=== PATIENT | female | born 1945 | race Caucasian/White ===

== ENCOUNTER 2017-10-26 06:39 | Inpatient (IN) | payer MEDICARE, OTHER ==
[2017-10-26] MEDS ORDERED: ROCURONIUM 50 MG INJ (07:00)
[2017-10-26] MEDS ORDERED: LIDOCAINE 2% (SDV) 5 ML INJ (07:00)
[2017-10-26] MEDS ORDERED: ACETAMINOPHEN 1000 MG/100 ML IVPB (07:00)
[2017-10-26] MEDS ORDERED: SUGAMMADEX SODIUM 200 MG/2 ML VIAL IV (07:00)
[2017-10-26] MEDS ORDERED: CEFAZOLIN 1 GM INJ (07:00)
[2017-10-26] MEDS: DEXAMETHASONE 1 MG TAB PO (07:36)
[2017-10-26] MEDS: traMADol 50 MG TAB PO (07:36)
[2017-10-26] MEDS: GABAPENTIN 300 MG CAP PO ×2 (07:36→21:41)
[2017-10-26] MEDS: BUPIVACAINE 0.5%/EPI (SDV) 30 ML INJ (07:45)
[2017-10-26] MEDS: TOBRAMYCIN 1.2 GM POWDER (07:45)
[2017-10-26] MEDS: POLYMYXIN/BACITRACIN 1L IRRIG (07:46)
[2017-10-26] MEDS: CA CHLORIDE 10% 10 ML SYRINGE (07:46)
[2017-10-26] MEDS: THROMBIN 5000 UNIT VIAL (07:47)
[2017-10-26] MEDS ORDERED: FENTAnyl 50 MCG/ML VIAL (08:28)
[2017-10-26] MEDS ORDERED: PROPOFOL 20 ML (08:29)
[2017-10-26] MEDS ORDERED: SUCCINYLCHOLINE CHLORIDE 100 MG/5 ML SYG IV (08:29)
[2017-10-26] MEDS ORDERED: MIDAZOLAM 1 MG/ML 2 ML INJ ×2 (08:29→08:44)
[2017-10-26] MEDS: BUPIVACAINE 0.5% (SDV) 30 ML, morphine SULFATE (PF) 8 MG, EPINEPHrine 0.3 MG, KETOROLAC... IRR ×2 (08:30→09:11)
[2017-10-26] MEDS ORDERED: ROPIVACAINE 0.5 % 30 ML VIAL (08:34)
[2017-10-26] MEDS: CEFAZOLIN 2 GM/50 ML (PMX) 50 ML IVPB (08:45)
[2017-10-26] MEDS: TRANEXAMIC ACID 1,000 MG in DEXTROSE 5% 100 ML IVPB (09:11)
[2017-10-26] MEDS ORDERED: ONDANSETRON 4 MG INJ (09:27)
[2017-10-26] MEDS ORDERED: MAGNESIUM HYDROXIDE 30ML CUP PO (10:00)
[2017-10-26] MEDS ORDERED: morphine 2 MG INJ IV ×2 (10:00)
[2017-10-26] MEDS ORDERED: LORAZEPAM 1 MG TAB PO (10:00)
[2017-10-26] MEDS ORDERED: ONDANSETRON 4 MG INJ IV ×2 (10:00→11:00)
[2017-10-26] MEDS ORDERED: DIPHENHYDRAMINE 50 MG INJ IV ×2 (10:00→11:00)
[2017-10-26] MEDS ORDERED: ACETAMINOPHEN 500 MG TAB PO (10:00)
[2017-10-26] MEDS ORDERED: ZOLPIDEM 5 MG TAB PO (10:00)
[2017-10-26] MEDS ORDERED: OXYCODONE/ACETAMINOPHEN (5/325) TAB PO (10:00)
[2017-10-26] MEDS ORDERED: hydrALAzine 20 MG INJ (10:38)
[2017-10-26] MEDS: TRANEXAMIC ACID 1,000 MG in DEXTROSE 5% 100 ML IV (10:57)
[2017-10-26] MEDS: hydrALAzine 20 MG INJ IV (10:58)
[2017-10-26] MEDS ORDERED: FENTAnyl 50 MCG/ML VIAL IV ×2 (11:00)
[2017-10-26] MEDS ORDERED: MEPERIDINE 25 MG INJ IV (11:00)
[2017-10-26] MEDS ORDERED: HYDROmorphONE 1 MG/5 ML IV SYRINGE IV ×2 (11:00)
[2017-10-26] MEDS ORDERED: IPRATROPIUM (NEB) 0.5 MG/2.5 ML AMP HHN (11:00)
[2017-10-26] MEDS ORDERED: hydrALAzine 20 MG INJ IV (11:00)
[2017-10-26] MEDS: LABETALOL HCL 20MG INJ IV (11:04)
[2017-10-26] MEDS: DEXAMETHASONE 2 MG TAB PO ×3 (13:13→23:59)
[2017-10-26] MEDS ORDERED: morphine LIQ (10 MG/5 ML) CUP PO ×2 (17:30→18:00)
[2017-10-26] MEDS: CEFAZOLIN 1 GM/50 ML (PMX) 50 ML IVPB ×2 (17:33→17:34)
[2017-10-26] MEDS: LATANOPROST 0.005% 2.5 ML OPH BOTH EYES (21:41)
[2017-10-26] MEDS: SENNA/DOCUSATE NA (8.6MG/50MG) TAB PO (21:42)
[2017-10-26] MEDS: MONTELUKAST 10 MG TAB PO (21:42)
[2017-10-26] MEDS: BENAZEPRIL 20 MG TAB PO (21:42)
[2017-10-27] MEDS: CEFAZOLIN 1 GM/50 ML (PMX) 50 ML IVPB (01:29)
[2017-10-27] MEDS: OXYCODONE/ACETAMINOPHEN (5/325) TAB PO ×2 (03:46→10:22)
[2017-10-27] MEDS: DEXAMETHASONE 2 MG TAB PO (05:35)
[2017-10-27] MEDS: PANTOPRAZOLE (EC) 40 MG TAB PO (05:35)
[2017-10-27] MEDS: KETOROLAC 15 MG INJ IV (08:23)
[2017-10-27] MEDS: ASPIRIN 81 MG TAB PO (08:23)
[2017-10-27] MEDS: SENNA/DOCUSATE NA (8.6MG/50MG) TAB PO (08:23)
[2017-10-27] MEDS: CLOPIDOGREL 75 MG TAB PO (08:23)
[2017-10-27] MEDS: BENAZEPRIL 20 MG TAB PO (09:00)
[2017-10-27] MEDS: METOPROLOL (XL) 25 MG TAB PO (09:00)
== END 2017-10-27 11:30 | disposition home or self-care (01) | DRG 483 ==
LOC: REC 06:39 → MS1 11:41
PROC: 0RRJ00Z Replacement of Right Shoulder Joint with Reverse Ball and Socket Synthetic Substitute, Open Approach (ICD-10-PCS; principal; 2017-10-26 08:15)
PROC: 0LS30ZZ Reposition Right Upper Arm Tendon, Open Approach (ICD-10-PCS; 2017-10-26 08:15)
DX: M19.211 Secondary osteoarthritis, right shoulder (principal); Z68.41 Body mass index [BMI] 40.0-44.9, adult; M75.101 Unspecified rotator cuff tear or rupture of right shoulder, not specified as traumatic; I25.10 Atherosclerotic heart disease of native coronary artery without angina pectoris; E66.01 Morbid (severe) obesity due to excess calories; I10 Essential (primary) hypertension
CPT/HCPCS: 73030-RT; 86999; 88304; 88311; 97165